=== PATIENT | male | born 1985 | race Asian ===

== ENCOUNTER 2020-08-11 18:59 | Inpatient (IN) | payer MEDICAID ==
[~2020-08-11] VITALS: Ht 172.7 cm; Wt 53.5 kg
[2020-08-11 19:00] VITALS: BP 90/64
[2020-08-11 21:07] LABS: COVID AG,FIA SOURCE NASOPHARYNGEAL
[2020-08-12] MEDS ORDERED: HALOPERIDOL 5 MG TABLET PO PRN (00:30)
[2020-08-12] MEDS ORDERED: LORazepam 2 MG TABLET PO PRN (00:30)
[2020-08-12] MEDS ORDERED: ZOLPIDEM TARTRATE 10 MG TABLET PO PRN (00:30)
[2020-08-12 09:24] VITALS: BP 147/95
[2020-08-12] MEDS ORDERED: CHOLECALCIFEROL (VIT D3) 2,000 UNITS [50 MCG] TABLET PO SCH (10:00)
[2020-08-12] MEDS ORDERED: BICTEGRAV/EMTRICIT/TENOFOV ALA 50-200-25 MG TABLET PO SCH (10:00)
[2020-08-12] MEDS ORDERED: PNEUMOCOCCAL VACCINE POLYVALENT 0.5 ML VIAL [PPSV23] IM. ONE (10:30)
[2020-08-12] MEDS: ValACYclovir HCL 500 MG TABLET PO SCH ×2 (12:00→16:25)
[2020-08-12 15:50] LABS: APPEARANCE,URINE CLEAR (CLEAR); BILIRUBIN,URINE NEGATIVE (NEGATIVE); GLUCOSE, URINE (UA) NEGATIVE (NEGATIVE); KETONES,URINE NEGATIVE (NEGATIVE); LEUKOCYTE ESTERASE ,URINE NEGATIVE (NEGATIVE); NITRATE,URINE NEGATIVE (NEGATIVE); OCCULT BLOOD,URINE NEGATIVE (NEGATIVE); PROTEIN,URINE TRACE (NEGATIVE); UROBILINOGEN,URINE 0.2 mg/dL (<=1.0)
[2020-08-12 15:55] LABS: AMPHET/METH SCREEN,URINE NEGATIVE (NEGATIVE); BARBITURATE SCREEN, URINE NEGATIVE (NEGATIVE); BENZODIAZEPINES SCREEN,URINE NEGATIVE (NEGATIVE); CANNABINOID SCREEN,URINE POSITIVE (NEGATIVE); COCAINE SCREEN,URINE NEGATIVE (NEGATIVE); METHADONE SCREEN, URINE NEGATIVE (NEGATIVE); OPIATE SCREEN,URINE NEGATIVE (NEGATIVE)
[2020-08-12 15:56] LABS: PHENCYCLIDINE SCREEN,URINE NEGATIVE (NEGATIVE)
[2020-08-12 16:02] VITALS: BP 148/100
[2020-08-12] MEDS ORDERED: RisperiDONE 0.5 MG TABLET PO SCH (21:00)
[2020-08-13] MEDS ORDERED: UDCUP PO SCH (07:30)
[2020-08-13] MEDS ORDERED: ATOVAQUONE 750 MG/5 ML PO SCH (07:30)
[2020-08-13] MEDS ORDERED: MAGNESIUM OXIDE 400 MG TABLET PO SCH (09:00)
[2020-08-13] MEDS ORDERED: SPIRONOLACTONE 50 MG TABLET PO SCH (09:00)
[2020-08-13] MEDS ORDERED: HYDROCHLOROTHIAZIDE 25 MG TABLET PO SCH (09:00)
== END 2020-08-12 19:45 | disposition home or self-care (01) | DRG 750 ==
LOC: 3EC 08-12 09:22
PROVIDERS: ADMIT Psychiatry & Neurology Psychiatry; ATTEND Psychiatry & Neurology Psychiatry
DX: F20.9 Schizophrenia, unspecified (principal); F17.200 Nicotine dependence, unspecified, uncomplicated; F41.9 Anxiety disorder, unspecified; Z20.822 Contact with and (suspected) exposure to COVID-19; I10 Essential (primary) hypertension; G47.00 Insomnia, unspecified; K59.00 Constipation, unspecified; F19.10 Other psychoactive substance abuse, uncomplicated; Z88.6 Allergy status to analgesic agent; Z71.6 Tobacco abuse counseling
CPT/HCPCS: 80307; 81003; 87426; A9575

== ENCOUNTER 2020-08-11 22:51 | Emergency (ER) | payer MEDICAID ==
[~2020-08-11] VITALS: Ht 172.7 cm; Wt 56.8 kg
[2020-08-12] MEDS ORDERED: SPIRONOLACTONE 50 MG TABLET PO ONE (01:30)
[2020-08-12] MEDS ORDERED: HYDROCHLOROTHIAZIDE 25 MG TABLET PO ONE (01:30)
[2020-08-12 01:50] LABS: BASOPHILS % (AUTO) 1.1 % (0.0-2.0); HEMATOCRIT 40.2 % (41-53); HEMOGLOBIN 13.6 g/dL (13.5-17.5); LYMPHOCYTES # (AUTO) 1.5 K/uL (1.0-4.8); LYMPHOCYTES % (AUTO) 30.1 % (22.0-44.0); MEAN CORPUSCULAR HEMOGLOBIN 33.1 pg (26.0-34.0); MEAN CORPUSCULAR HGB CONC 33.9 G/dL (31.0-37.0); MEAN CORPUSCULAR VOLUME 98 fL (80-100); MONOCYTES # (AUTO) 0.6 K/uL (0.1-1.0); MONOCYTES % (AUTO) 11.7 % (2.0-9.0); NEUTROPHILS # (AUTO) 2.6 K/uL (1.8-7.7); NEUTROPHILS % (AUTO) 54.1 % (40.0-70.0); PLATELET COUNT (AUTO) 308 K/uL (150-450); RED BLOOD CELL COUNT(AUTO) 4.12 MIL/uL (4.50-5.90); RED CELL DISTRIBUTION WIDTH 12.3 % (11.5-14.5)
[2020-08-12] MEDS ORDERED: ALBUTEROL SULFATE HFA 90 MCG/PUFF 8 GM INHALER IH ONE (01:52)
[2020-08-12 01:59] LABS: ANION GAP 7 mmol/L (8-16); CALCIUM, TOTAL 8.7 mg/dL (8.8-10.5); CARBON DIOXIDE 29 mmol/L (22-29); CHLORIDE 99 mmol/L (98-107); CREATININE 1.52 mg/dL (0.60-1.30); GLOMERULAR FILTR. RATE CALC 53 mL/min (>60); GLUCOSE,RANDOM 105 mg/dL (70-110); POTASSIUM 3.7 mmol/L (3.5-5.1); SODIUM SERUM 135 mmol/L (136-145); UREA NITROGEN, BLOOD 32 mg/dL (7-18)
[2020-08-12 02:05] LABS: ALANINE AMINOTRANSFERASE 28 U/L (12-78); ALBUMIN 4.3 g/dL (3.4-5.0); ALKALINE PHOSPHATASE 72 U/L (46-116); ASPARTATE AMINOTRANSFERASE 23 U/L (15-37); BILIRUBIN,TOTAL 0.2 mg/dL (0.1-1.0); TOTAL PROTEIN, SERUM 8.4 g/dL (6.4-8.2)
[2020-08-12 06:45] VITALS: BP 185/93
== END 2020-08-12 08:30 | disposition admitted as inpatient to this hospital (09) ==
LOC: EMS 22:51
DX: R44.0 Auditory hallucinations (principal); R62.7 Adult failure to thrive; Z68.1 Body mass index [BMI] 19.9 or less, adult; I12.9 Hypertensive chronic kidney disease with stage 1 through stage 4 chronic kidney disease, or unspecified chronic kidney disease; N18.9 Chronic kidney disease, unspecified; F12.90 Cannabis use, unspecified, uncomplicated; F15.90 Other stimulant use, unspecified, uncomplicated
CPT/HCPCS: 36415; 71046; 80053; 85025; 99285; G0480; J3535

== ENCOUNTER 2020-08-15 13:47 | Inpatient (IN) | payer MEDICAID ==
[~2020-08-15] VITALS: Ht 162.6 cm; Wt 56.4 kg
[2020-08-16] MEDS ORDERED: HALOPERIDOL 5 MG TABLET PO PRN ×2 (14:15→17:45)
[2020-08-16] MEDS ORDERED: LORazepam 2 MG TABLET PO PRN (14:15)
[2020-08-16 16:35] VITALS: BP 150/90
[2020-08-16] MEDS ORDERED: ONDANSETRON HCL 4 MG TABLET PO PRN (16:45)
[2020-08-16] MEDS ORDERED: BACITRACIN 28 GM OINTMENT TP PRN (16:45)
[2020-08-16] MEDS ORDERED: BENZOCAINE/MENTHOL LOZENGE PO PRN (16:45)
[2020-08-16] MEDS ORDERED: CloNIDine HCL 0.1 MG TABLET PO PRN (16:45)
[2020-08-16] MEDS ORDERED: LOPERAMIDE HCL 2 MG CAPSULE PO PRN (16:45)
[2020-08-16] MEDS ORDERED: MAG HYDROX/AL HYDROX/SIMETH ES 30 ML SUSPENSION UDCUP PO PRN (16:45)
[2020-08-16] MEDS ORDERED: ALBUTEROL SULFATE HFA 90 MCG/PUFF 8 GM INHALER IH PRN (17:15)
[2020-08-16] MEDS ORDERED: OMEPRAZOLE 20 MG CAPSULE PO PRN (17:15)
[2020-08-16] MEDS ORDERED: IBUPROFEN 600 MG TABLET PO PRN (17:15)
[2020-08-16] MEDS ORDERED: MAG HYDROX/AL HYDROX/SIMETH 30 ML SUSP UDCUP PO PRN (17:15)
[2020-08-16] MEDS ORDERED: DOCUSATE SODIUM 100 MG CAPSULE PO PRN (17:15)
[2020-08-16] MEDS ORDERED: ALBUTEROL SULFATE 2.5 MG/0.5 ML NEB SOLUTION NEB PRN (17:30)
[2020-08-16] MEDS ORDERED: IPRATROPIUM BROMIDE 0.5 MG/2.5 ML NEB SOLUTION NEB PRN (17:30)
[2020-08-16] MEDS ORDERED: ACETAMINOPHEN 325 MG TABLET PO PRN (17:30)
[2020-08-16] MEDS ORDERED: ValACYclovir HCL 500 MG TABLET PO ONE (17:30)
[2020-08-16] MEDS ORDERED: ZOLPIDEM TARTRATE 10 MG TABLET PO PRN (17:45)
[2020-08-16] MEDS ORDERED: RisperiDONE 0.5 MG TABLET PO SCH (21:00)
[2020-08-16] MEDS: HALOPERIDOL 5 MG TABLET PO SCH (21:06)
[2020-08-16] MEDS: BENZTROPINE MESYLATE 2 MG TABLET PO SCH (21:06)
[2020-08-17 03:31] VITALS: BP 146/114
[2020-08-17] MEDS: UDCUP PO SCH (07:00)
[2020-08-17] MEDS: ATOVAQUONE 750 MG/5 ML PO SCH (07:00)
[2020-08-17 08:31] VITALS: BP 142/125
[2020-08-17] MEDS: HYDROCHLOROTHIAZIDE 25 MG TABLET PO SCH (08:36)
[2020-08-17] MEDS: ValACYclovir HCL 500 MG TABLET PO SCH ×3 (08:36→16:20)
[2020-08-17] MEDS: SPIRONOLACTONE 50 MG TABLET PO SCH (08:36)
[2020-08-17] MEDS: CHOLECALCIFEROL (VIT D3) 1,000 UNITS [25 MCG] TABLET PO SCH (08:36)
[2020-08-17] MEDS: MAGNESIUM OXIDE 400 MG TABLET PO SCH (08:36)
[2020-08-17] MEDS: BICTEGRAV/EMTRICIT/TENOFOV ALA 50-200-25 MG TABLET PO SCH (08:36)
[2020-08-17 13:58] LABS: COVID AG,FIA SOURCE NASOPHARYNGEAL
[2020-08-17 16:00] VITALS: BP 134/99
[2020-08-17] MEDS: HALOPERIDOL 5 MG TABLET PO SCH (21:00)
[2020-08-17] MEDS: BENZTROPINE MESYLATE 2 MG TABLET PO SCH (22:53)
[2020-08-18 04:27] VITALS: BP 155/119
[2020-08-18] MEDS: UDCUP PO SCH (06:56)
[2020-08-18] MEDS: ATOVAQUONE 750 MG/5 ML PO SCH (06:56)
[2020-08-18 08:12] VITALS: BP 148/116
[2020-08-18] MEDS: HYDROCHLOROTHIAZIDE 25 MG TABLET PO SCH (08:51)
[2020-08-18] MEDS: SPIRONOLACTONE 50 MG TABLET PO SCH (08:51)
[2020-08-18] MEDS: BICTEGRAV/EMTRICIT/TENOFOV ALA 50-200-25 MG TABLET PO SCH (08:51)
[2020-08-18] MEDS: CHOLECALCIFEROL (VIT D3) 1,000 UNITS [25 MCG] TABLET PO SCH (08:51)
[2020-08-18] MEDS: MAGNESIUM OXIDE 400 MG TABLET PO SCH (08:51)
[2020-08-18] MEDS: ValACYclovir HCL 500 MG TABLET PO SCH ×2 (08:51→12:06)
[2020-08-18] MEDS ORDERED: MULTIVITAMINS WITH MINERALS, THERAPEUTIC TABLET PO SCH (09:00)
[2020-08-18] MEDS ORDERED: MAGN400T7 PO (15:16)
[2020-08-18] MEDS ORDERED: SPIR50 PO (15:16)
[2020-08-18] MEDS ORDERED: BENZ2TAB10 PO (15:16)
[2020-08-18] MEDS ORDERED: HYDR25TA2 PO (15:16)
[2020-08-18] MEDS ORDERED: BICT1TAB PO (15:16)
[2020-08-18] MEDS ORDERED: VALA500T42 PO (15:16)
[2020-08-18] MEDS ORDERED: MULT-1239 PO (15:16)
[2020-08-18] MEDS ORDERED: HALO5TAB2 PO (15:16)
[2020-08-18] MEDS ORDERED: CHOL100044 PO (15:16)
[2020-08-18] MEDS ORDERED: ATOV750O PO (15:16)
== END 2020-08-18 16:15 | disposition home or self-care (01) | DRG 750 ==
LOC: 3EI 08-16 14:23
PROVIDERS: ADMIT Psychiatry & Neurology Psychiatry; ATTEND Psychiatry & Neurology Psychiatry
DX: F25.9 Schizoaffective disorder, unspecified (principal); F15.10 Other stimulant abuse, uncomplicated; Z20.822 Contact with and (suspected) exposure to COVID-19; Z78.9 Other specified health status; F41.9 Anxiety disorder, unspecified; F19.10 Other psychoactive substance abuse, uncomplicated; K59.00 Constipation, unspecified; G47.00 Insomnia, unspecified; I10 Essential (primary) hypertension
CPT/HCPCS: 87081; 87426; A9575; Z7610